=== PATIENT | female | born 1945 | race Caucasian/White ===

== ENCOUNTER 2019-07-20 16:19 | Emergency (ER) | payer OTHER ==
[~2019-07-20] VITALS: Ht 154.9 cm; Wt 45.4 kg
[2019-07-20] MEDS ORDERED: HYDROcodone-ACET 7.5/325MG TAB PO ONE (16:30)
[2019-07-20 17:50] VITALS: BP 143/48
== END 2019-07-20 18:02 | disposition home or self-care (01) ==
LOC: EDBD 16:19 → ER 16:19
DX: S16.1XXA Strain of muscle, fascia and tendon at neck level, initial encounter (principal); W19.XXXA Unspecified fall, initial encounter; Y93.89 Activity, other specified; Y92.89 Other specified places as the place of occurrence of the external cause; Y99.8 Other external cause status
CPT/HCPCS: 70450; 72125